=== PATIENT | female | born 1955 | race Two or more races ===

== ENCOUNTER 2018-04-24 11:19 | Emergency (ER) | payer OTHER ==
[~2018-04-24] VITALS: Ht 162.6 cm; Wt 54.4 kg
[2018-04-24 12:34] VITALS: BP 155/82
[2018-04-24] MEDS ORDERED: Norco 5mg/325mg tab ORAL ONE (12:45)
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
[2018-04-24] MEDS ORDERED: SILVADENE20 GM TP (13:33)
[2018-04-24] MEDS ORDERED: NORCO 5-325 TA1 EACH ORAL (13:33)
[2018-04-24] MEDS ORDERED: TYLENOL EXTRA500 MG ORAL (13:33)
[2018-04-24 14:09] VITALS: BP 144/89
== END 2018-04-24 14:11 | disposition home or self-care (01) ==
LOC: EMR 13:14
DX: T21.01XA Burn of unspecified degree of chest wall, initial encounter (principal); T20.00XA Burn of unspecified degree of head, face, and neck, unspecified site, initial encounter; X10.1XXA Contact with hot food, initial encounter; Y92.89 Other specified places as the place of occurrence of the external cause
CPT/HCPCS: 99284